=== PATIENT | male | born 1970 | race Caucasian/White ===

== ENCOUNTER 2018-11-18 21:56 | Emergency (ER) | payer SELFPAY ==
[2018-11-18] MEDS ORDERED: Lidocaine 1% 20 ML MDV ONE (22:23)
[2018-11-18] MEDS ORDERED: Triple Antibiotic Oint 1 GM Packet ONE (23:45)
[2018-11-18] MEDS ORDERED: Sulfameth/Trimethoprim DS 800-160mg TAB ONE (23:45)
[2018-11-18] MEDS ORDERED: Ibuprofen 800 MG TAB ONE (23:45)
== END 2018-11-18 23:58 | disposition home or self-care (01) ==
LOC: MADERS 21:56
DX: S61.245A Puncture wound with foreign body of left ring finger without damage to nail, initial encounter (principal); F17.220 Nicotine dependence, chewing tobacco, uncomplicated; W45.8XXA Other foreign body or object entering through skin, initial encounter
CPT/HCPCS: 64450; J2001

== ENCOUNTER 2022-04-03 10:09 | Outpatient (CLI) | payer SELFPAY | END 2022-04-03 10:10 | disposition home or self-care (01) | LOC: MADLAB 10:09 | PROVIDERS: ATTEND Family Medicine | DX: M54.6 Pain in thoracic spine (principal); M47.816 Spondylosis without myelopathy or radiculopathy, lumbar region; M47.814 Spondylosis without myelopathy or radiculopathy, thoracic region | CPT/HCPCS: 72070; 72100 ==